=== PATIENT | male | born 1960 | race Caucasian/White ===

== ENCOUNTER 2021-03-22 16:07 | Emergency (ER) | payer OTHER ==
[~2021-03-22] VITALS: Ht 180.3 cm; Wt 126.1 kg
[2021-03-22] MEDS ORDERED: GLUMETZA500 MG PO (16:23)
== END 2021-03-22 21:24 | disposition home or self-care (01) ==
LOC: ER 16:07
DX: N20.0 Calculus of kidney (principal); N39.0 Urinary tract infection, site not specified; R31.9 Hematuria, unspecified